=== PATIENT | female | born 1935 | race African-American/Black ===

== ENCOUNTER 2020-03-02 05:32 | Inpatient (IN) ==
[2020-02-25 14:46] LABS: Apearance,Urine CLEAR (Clear); Bilirubin,Urine Negative (Negative); Blood, Urine Negative (Negative); Glucose,Urine (UA) Negative (Negative); Ketones,Urine Negative (Negative); Mucus,Urine Occasional /LPF (Occasional); Nitrite,Urine Negative (Negative); Protein,Urine Negative; RBC,Urine 1 /HPF (0-4); Squamous Epithelial Cell,Urine Occasional /HPF (0-10); Urine Color Yellow (Yellow); Urine Specific Gravity 1.016 (1.001-1.035); Urine Urobilinogen < 2.0 EU/DL (0.2-1.0); WBC,Urine 4 /HPF (0-6)
[2020-02-25 14:48] LABS: Basophils # 0.1 10*3/uL (0.0-0.2); Basophils % 0.7 % (0.0-0.8); Eosinophils # 0.1 10*3/uL (0.0-0.87); Eosinophils % 0.9 % (0.00-10.9); Hematocrit 36.2 VOL% (35.7-47.0); Hemoglobin 11.5 GM/DL (12.0-16.0); Immature Granulocytes % 0.3 %; Immature Granulocytes Absolute 0.02 #; Lymphocytes # 2.2 10*3/uL (1.4-4.0); Lymphocytes % 28.7 % (21.3-54.2); Mean Corpuscular HGB Conc 31.8 GM/DL (32-36); Mean Corpuscular Volume 93.8 FL (87-102); Mean Platelet Volume 10.8 FL (9.6-12.0); Monocytes % 5.2 % (1.7-12.7); Neutrophils % 64.2 % (38.7-73.9); Platelet Count 289 T/CUMM (130-400); Red Blood Count 3.86 MC/CUMM (3.8-5.5); Red Cell Distribution Width 12.7 % (9.3-17.3); White Blood Count 7.6 T/CUMM (4-12)
[2020-02-25 15:11] LABS: Osmolality,Calculated 281.3 MOS/KG (273-304)
[2020-03-02] MEDS ORDERED: cefTRIAXone 1,000 MG VIAL ONE (06:19)
[2020-03-02] MEDS ORDERED: ALVIMOPAN 12 MG CAPSULE ONE (06:19)
[2020-03-02] MEDS ORDERED: DIAZEPAM 5 MG TABLET PO ONE (06:27)
[2020-03-02] MEDS ORDERED: FAMOTIDINE 20 MG TABLET PO ONE (06:27)
[2020-03-02] MEDS ORDERED: LACTATED RINGERS 1,000 ML IV SCH (06:30)
[2020-03-02] MEDS ORDERED: INDOCYANINE GREEN 25 MG VIAL IV ONE (06:37)
[2020-03-02] MEDS ORDERED: DIAZEPAM 5 MG TABLET ONE (06:50)
[2020-03-02] MEDS ORDERED: FAMOTIDINE 20 MG TABLET ONE (06:50)
[2020-03-02] MEDS ORDERED: ALVIMOPAN 12 MG CAPSULE PO ONE (06:53)
[2020-03-02] MEDS ORDERED: diphenhydrAMINE 50 MG/1 ML VIAL IV PRN (10:39)
[2020-03-02] MEDS ORDERED: ONDANSETRON 4 MG/2 ML VIAL IV PRN (10:39)
[2020-03-02 10:45] LABS: Apearance,Urine CLEAR (Clear); Bilirubin,Urine Negative (Negative); Blood, Urine Negative (Negative); Glucose,Urine (UA) Negative (Negative); Ketones,Urine Negative (Negative); Nitrite,Urine Negative (Negative); Protein,Urine Negative; RBC,Urine 1 /HPF (0-4); Squamous Epithelial Cell,Urine Occasional /HPF (0-10); Urine Color Yellow (Yellow); Urine Specific Gravity 1.018 (1.001-1.035); Urine Urobilinogen < 2.0 EU/DL (0.2-1.0)
[2020-03-02] MEDS ORDERED: HYDROmorphone PCA 30 MG/30 ML SYRINGE IV SCH (11:00)
[2020-03-02] MEDS ORDERED: propofoL 200 MG/20 ML VIAL IV ONE (11:13)
[2020-03-02] MEDS ORDERED: LIDOCAINE 2% 5 ML VIAL ONE (11:14)
[2020-03-02] MEDS ORDERED: SEVOFLURANE 1 UNIT/15 MINUTE INH ONE (11:14)
[2020-03-02] MEDS ORDERED: MANNITOL 12.5 GM/50 ML VIAL IV ONE (11:14)
[2020-03-02] MEDS ORDERED: ONDANSETRON 4 MG/2 ML VIAL ONE (11:15)
[2020-03-02] MEDS ORDERED: MIDAZOLAM 2 MG/2 ML VIAL ONE (11:15)
[2020-03-02] MEDS ORDERED: fentaNYL 100 MCG/2 ML VIAL ONE (11:15)
[2020-03-02] MEDS ORDERED: ePHEDrine 50 MG/ML VIAL ONE (11:15)
[2020-03-02] MEDS ORDERED: ROCURONIUM 100 MG/10 ML VIAL IV ONE (11:16)
[2020-03-02] MEDS ORDERED: SUCCINYLCHOLINE 200 MG/10 ML VIAL ONE (11:16)
[2020-03-02] MEDS ORDERED: LACTATED RINGERS 2,000 ML IV ONE (11:16)
[2020-03-02] MEDS ORDERED: GLYCOPYRROLATE 0.4 MG/2 ML VIAL ONE (11:16)
[2020-03-02] MEDS ORDERED: NEOSTIGMINE 10 MG/10 ML VIAL ONE (11:18)
[2020-03-02] MEDS ORDERED: HYDROmorphone PCA 30 MG/30 ML SYRINGE IV ONE (11:39)
[2020-03-02] MEDS: DEXTROSE 5% NACL 0.45% 1,000 ML IV SCH ×2 (13:04→23:35)
[2020-03-02] MEDS: ALVIMOPAN 12 MG CAPSULE PO SCH (20:10)
[2020-03-02] MEDS: DEXT 5% NACL 0.45% KCL 20 MEQ 20 MEQ/1,000 ML BAG IV SCH (20:10)
[2020-03-03 06:24] LABS: Basophils % 0.4 % (0.0-0.8); Eosinophils % 0.2 % (0.00-10.9); Hematocrit 31.8 VOL% (35.7-47.0); Hemoglobin 10.1 GM/DL (12.0-16.0); Immature Granulocytes % 0.2 %; Immature Granulocytes Absolute 0.02 #; Lymphocytes # 1.6 10*3/uL (1.4-4.0); Lymphocytes % 18.8 % (21.3-54.2); Mean Corpuscular HGB Conc 31.8 GM/DL (32-36); Mean Corpuscular Volume 94.1 FL (87-102); Mean Platelet Volume 10.6 FL (9.6-12.0); Neutrophils % 73.4 % (38.7-73.9); Platelet Count 205 T/CUMM (130-400); Red Blood Count 3.38 MC/CUMM (3.8-5.5); Red Cell Distribution Width 12.6 % (9.3-17.3); White Blood Count 8.4 T/CUMM (4-12)
[2020-03-03 06:40] LABS: Calcium 8.2 MG/DL (8.5-10.1); Osmolality,Calculated 281.3 MOS/KG (273-304)
[2020-03-03] MEDS ORDERED: oxyCODONE/ACETAMINOPHEN 5-325 MG TABLET PO PRN ×2 (08:04→08:10)
[2020-03-03] MEDS: DEXT 5% NACL 0.45% KCL 20 MEQ 20 MEQ/1,000 ML BAG IV SCH (08:20)
[2020-03-03] MEDS: CALCIUM (CARBONATE)/VITAMIN D 600 MG-400 UNIT TABLET PO SCH (09:08)
[2020-03-03] MEDS: ALVIMOPAN 12 MG CAPSULE PO SCH ×2 (09:09→20:27)
[2020-03-03] MEDS: DEXTROSE 5% NACL 0.45% 1,000 ML IV SCH ×2 (09:09→23:00)
[2020-03-03] MEDS: atenoloL 50 MG TABLET PO SCH (09:09)
[2020-03-03] MEDS: OMEGA 3 ACID ETHYL ESTERS 1 GM CAPSULE PO SCH (09:09)
[2020-03-03] MEDS: oxyCODONE/ACETAMINOPHEN 5-325 MG TABLET PO PRN ×2 (15:50→20:36)
[2020-03-04] MEDS: oxyCODONE/ACETAMINOPHEN 5-325 MG TABLET PO PRN ×2 (01:16→08:17)
[2020-03-04] MEDS: atenoloL 50 MG TABLET PO SCH (08:16)
[2020-03-04] MEDS: OMEGA 3 ACID ETHYL ESTERS 1 GM CAPSULE PO SCH (08:16)
[2020-03-04] MEDS: ALVIMOPAN 12 MG CAPSULE PO SCH (08:16)
[2020-03-04] MEDS: CALCIUM (CARBONATE)/VITAMIN D 600 MG-400 UNIT TABLET PO SCH (08:17)
[2020-03-04 09:12] VITALS: BP 154/65
[2020-03-04] MEDS: DEXTROSE 5% NACL 0.45% 1,000 ML IV SCH (13:04)
== END 2020-03-04 12:40 | disposition home or self-care (01) | DRG 658 ==
LOC: N.OR 05:32 → N.SDSINP 05:33 → N.4E 08:37
PROVIDERS: ADMIT Urology; ATTEND Urology